=== PATIENT | female | born 1960 | race Caucasian/White ===

== ENCOUNTER → 2017-09-04 | Day surgery (SDC) | payer OTHER ==
[~2017-09-04] MED LIST: ACETAMINOPHEN/HYDROcodone 325 MG/5 MG TAB ONE; BUPIVACAINE/EPINEPHRINE 0.25% PF 10 ML VIAL ONE; KETOROLAC TROMETHAMINE 30 MG/ML (IVP) VIAL IV PUSH ONE; LACTATED RINGER'S 1000 ML INJ 1,000 ML ONE; MIDAZOLAM HCL 2 MG/2 ML VIAL ONE; MORPHINE SULFATE 4 MG/ML INJ ONE; ONDANSETRON HCL 4 MG/2 ML VIAL IV PUSH ONE; PROPOFOL 200 MG/20 ML AMP IV ONE; RESP: ALBUTEROL 2.5 MG/3 ML NEB (SCH) ONE; ROCURONIUM INJ 50 MG/5 ML VIAL ONE; ceFAZolin 2 GM PREMIX 50 ML ONE; metroNIDAZOLE 500 MG INJ 100 ML IV ONE
--- NOTE | 2017-09-04 11:02 | TN ---
cc: Albert Duvall MD DATE OF SURGERY: 09/04/2017 PREOPERATIVE DIAGNOSES: 1. Chronic right upper quadrant pain. 2. Biliary dyskinesia. POSTOPERATIVE DIAGNOSES: 1. Chronic right upper quadrant pain. 2. Biliary dyskinesia. 3. Chronic cholecystitis. PROCEDURE PERFORMED: Laparoscopic cholecystectomy. SURGEON: Albert Duvall MD CANDLE MOLDER HAND: SALENA Mckeon ANESTHESIA: General endotracheal. COMPLICATIONS: None. INDICATIONS FOR PROCEDURE: Ms. Davis is a very pleasant 57-year-old female who has had problems with chronic right upper quadrant postprandial abdominal pain. She had an ultrasound that did not demonstrate any gallstones. She then was sent for a HIDA scan which showed a low ejection fraction and mimicking of symptoms with CCK. She was referred for cholecystectomy. Risks and benefits of laparoscopic, possible open cholecystectomy was discussed with her in the office and she was agreeable. DETAILS OF PROCEDURE: The patient was identified, brought to the operating room, placed supine on the operating table. After adequate general endotracheal anesthesia was achieved, the abdomen was prepped and draped in standard surgical fashion. Infraumbilical space was anesthetized with 0.25% Marcaine. Infraumbilical incision was made. Dissection was carried down through subcutaneous tissue to midline fascia. Midline fascia was then incised sharply. A finger was then placed in the peritoneal cavity without difficulty. Blunt balloon trocar was inserted, and the abdomen was insufflated to 15 mmHg using CO2 gas. Next, two 5 mm trocars were placed in the right upper quadrant, after anesthetizing the skin and subcutaneous tissue with 0.25% Marcaine. Attention was directed to the right upper quadrant where the gallbladder was identified. Gallbladder was noted to have some omental adhesions which were taken down bluntly. The gallbladder was also noted to have some adhesions to the first portion of the duodenum. These were taken down with sharp dissection and the duodenum was carefully dissected off. Attention was now directed to the gallbladder neck. Gallbladder neck was clearly visualized. Cystic artery and cystic duct were dissected out, clearly seen in 2 planes and identified entering the neck of the gallbladder. They were clipped, then clipped twice proximally and once distally and then divided. Gallbladder was then dissected out of the hepatic fossa using electrocautery Bovie. Gallbladder was placed into an Endopouch bag and brought through the infraumbilical port. Gallbladder was inspected, found to contain no stones. Clips were in place in the cystic duct stump and there was no evidence of leakage of bile. Gallbladder sent to pathology for analysis. Next, the abdominal cavity was revisualized. The liver bed was completely hemostatic. Clips were visualized on the cystic artery and cystic duct stump and there is no evidence of bleeding, no leakage of bile. 0.25% Marcaine was then injected into the infrahepatic space. All trocars were then removed under direct vision. Midline fascia was repaired with 0 Vicryl in a [id number]-ky-kjzjo fashion. Skin was closed with 4-0 Vicryl. Please note the VIDEO PRODUCTION ASSISTANT machinist first class was medically necessary due to the complexity of the procedure and surgical expertise as well as her extensive knowledge of my surgical technique. The patient tolerated the procedure well, was awakened and brought to recovery in stable condition. MD MARANDA Law/ADELFO , 10:40 AM , 11:01 AM MIKE
== END | disposition home or self-care (01) ==
LOC: ESDC 08:23
PROVIDERS: ATTEND Surgery Trauma Surgery
DX: K81.1 Chronic cholecystitis (principal); K82.8 Other specified diseases of gallbladder
CPT/HCPCS: 00790; 47562; 88304; J0690; J1885; J2250; J2270; J2405; J3010; J7120; J7613